=== PATIENT | female | born 1950 | race Caucasian/White ===

== ENCOUNTER → 2017-02-16 | Outpatient (CLI) | payer MEDICARE, BC ==
--- NOTE | 2017-02-17 10:58 | RADRPT ---
PROCEDURE: RIGHT knee x-ray, 4 views CLINICAL INDICATION: PAIN TECHNIQUE: AP, weightbearing AP, lateral, and sunrise views of the knee were obtained. COMPARISON: Plain radiographs of the knees from 10/03/2015 FINDINGS: No acute fracture or dislocation is seen. There is decreased osseous mineralization. There is stable moderate narrowing of the medial compartment which narrows further with flexion. Sm all osteophytes are noted projecting off the superior pole of the patella. There is no joint effusion. There is no significant soft tissue swelling. IMPRESSION: Stable moderate narrowing of the medial compartment which narrows further with flexion. Mild degenerative changes of the patellofemoral compartment. Decreased osseous mineralization. RPTAT: EE Physician Patricio Date Time Electronically viewed and signed by Physician Patricio on 02/17/2017 08:24 /
--- NOTE | 2017-02-17 11:33 | RADRPT ---
PROCEDURE: Limited x-ray of both lower extremities. CLINICAL INDICATION: Bilateral leg pain. TECHNIQUE: Single frontal view of both lower extremities was obtained from the hips to the calves. COMPARISON: None. FINDINGS: There is moderate narrowing of the medial compartment of the right knee. There is moderate narrowing of the medial compartment of the left knee. There is decreased osseous mineralization. There is moderate narrowing of right greater than left hip joints. Soft tissue structures are unremarkable. IMPRESSION: Moderate narrowing of bilateral hip joints. Moderate narrowing of the medial compartments of bilateral knees. Decreased osseous mineralization. RPTAT: QQ Physician Patricio Date Time Electronically viewed and signed by Physician Patricio on 02/17/2017 11:32 RA/
== END | disposition home or self-care (01) ==
LOC: HKI 09:52
PROVIDERS: ATTEND Orthopaedic Surgery
DX: M25.561 Pain in right knee (principal); M17.11 Unilateral primary osteoarthritis, right knee
CPT/HCPCS: 73564; 77073; G0463

== ENCOUNTER 2017-02-22 08:13 | Inpatient (IN) | payer MEDICARE, BC ==
--- NOTE | 2017-02-16 10:06 | PREOPHP ---
History of Present Illness: A 65-year-old woman with severe degenerative joint disease now scheduled for a right total knee replacement by Dr. Carloz Gayle at [facility] on February 22, 2017. The patient denies any other acute or new medical problems. Past Medical History: 1. Hypercholesterolemia. 2. Glucose intolerance. 3. GERD. 4. Degenerative joint disease. 5. A history of EtOH abuse. Current Medications: Atorvastatin 20 mg at bedtime, omeprazole 20 mg in the morning, CoQ-10, vitamin D 5000 units daily, vitamin B12, 3000 mcg daily, lefluonomide 10 mg daily. Drug Allergies: None known. Review of Systems: General: No recent fever or chills. HEENT: No headache, dizziness, or epistaxis. Respiratory: No cough or shortness of breath. Cardiovascular: No chest pain, orthopnea or palpitations. Gastrointestinal: No abdominal pain, nausea, vomiting, melena or hematochezia. Genitourinary: No dysuria or hematuria. Physical Examination: General: A well-developed woman, in no acute distress. Vital Signs: Temp 98, respiratory rate 12, heart rate 72, blood pressure 110/70. HEENT: Head atraumatic. Eyes: Anicteric sclerae. Pupils equally round and reactive to light. Extraocular movements intact. Throat clear. Neck: Supple without adenopathy or thyromegaly. Lungs: Clear to auscultation. Cardiovascular: Regular rhythm with a soft systolic murmur. There is no gallop. There is no jugular venous distension. Abdomen: Soft, nondistended, with normal bowel sounds. There is no tenderness or masses. Extremities: Without cyanosis or edema. Ancillary Data: EKG shows normal sinus rhythm and the EKG is unchanged from previous EKGs. Chest x-ray shows no acute pulmonary disease. PT and PTT are both normal. WBC 5100, hemoglobin 14.2, platelet count 189,000. Electrolytes within normal limits. BUN 17, creatinine 0.9, blood sugar 116. Urinalysis is clear. Assessment: 1. Degenerative joint disease, now scheduled for right knee replacement. 2. Gastroesophageal reflux disease. 3. Glucose intolerance. 4. Hypercholesterolemia. 5. History of alcohol abuse. Discussion: Ms. Groves medical problems are currently well controlled and there are no contraindications for surgery as planned. Miguel Angel Adrian MD, dictating for Carloz Gayle MD.
[~2017-02-22] VITALS: Ht 157.5 cm; Wt 58.0 kg
[2017-02-22] VITALS (20 sets, daily range): BP systolic 103–134; BP diastolic 72–88; PULSE 68–80; RESP 11–18; Ht 157.5 cm; Wt 58.0 kg
[2017-02-22] MEDS: LACTATED RINGER'S 1,000 ML IV SCH ×4 (06:00→21:59)
[~2017-02-22 08:13] MED LIST: BUPIVACAINE LIPOSOME/PF 266 MG/20 ML VIAL INFIL ONE; CEFAZOLIN 2GM/50 ML (PMX) 50 ML X1 BEFORE INCISION IVPB ONE; CELECOXIB 400 MG PO X1 DOSE PO ONE; ETOMIDATE 20 MG INJ ONE; ONDANSETRON 4 MG IV X 1 DOSE IV ONE; PAIN COCKTAIL-CEFUROXIME IRR ONE; PREGABALIN 300 MG PO X1 PO ONE; PROPOFOL 200 MG INJ ONE; TRANEXAMIC ACID 600 MG in SOD CHLORIDE 0.9% 100 ML IVPB ONE; TRANEXAMIC ACID 600 MG in SOD CHLORIDE 0.9% 94 ML IV ONE; oxyCODONE (CR) 10 MG TAB [oxyCONTIN] X1 DOSE PO ONE; traMADOL 50 MG TAB X 1 DOSE PO ONE
[2017-02-22] MEDS ORDERED: SODIUM CL BACTERIOSTATIC 30 ML INJ ONE (08:46)
[2017-02-22] MEDS ORDERED: POLYMYXIN B 500000 UNIT INJ ONE (08:46)
[2017-02-22] MEDS ORDERED: VANCOMYCIN 1 GM INJ ONE (08:46)
[2017-02-22] MEDS ORDERED: BACITRACIN 50000 UNITS INJ ONE (09:05)
[2017-02-22] MEDS ORDERED: ATOR20TA38 PO (10:20)
[2017-02-22] MEDS ORDERED: OMEP20CA16 PO (10:21)
[2017-02-22] MEDS ORDERED: LEFL10TA15 PO (10:21)
--- NOTE | 2017-02-22 12:02 | HPN ---
Date/Time of Note Date/Time of Note DATE: 02/22/17 TIME: 12:01 Interval H&P Admission Note Pt. seen H&P reviewed: No system changes No changes from H&P on 02/17/17 by SUDHIR Vergara MD Feb 22, 2017 12:02
[2017-02-22] MEDS ORDERED: METOCLOPRAMIDE 10 MG INJ ONE (12:19)
[2017-02-22] MEDS ORDERED: MIDAZOLAM 1 MG/ML 2 ML INJ ONE (12:19)
[2017-02-22] MEDS ORDERED: DEXAMETHASONE 4 MG/ML 1 ML INJ ONE (12:20)
[2017-02-22] MEDS ORDERED: FENTAnyl 50 MCG/ML VIAL ONE (12:21)
[2017-02-22] MEDS ORDERED: EPHEDrine SULFATE 50 MG/5 ML SYG ONE (12:51)
[2017-02-22] MEDS ORDERED: EPHEDrine SULFATE 50 MG/5 ML SYG IV PRN (13:30)
[2017-02-22] MEDS ORDERED: DIPHENHYDRAMINE 50 MG INJ IV PRN (13:30)
[2017-02-22] MEDS ORDERED: HYDROmorphONE (0.2 MG/ML) 10ML SYG IV PRN ×3 (13:30)
[2017-02-22] MEDS ORDERED: METOCLOPRAMIDE 10 MG INJ IV PRN (13:30)
[2017-02-22] MEDS ORDERED: ONDANSETRON 4 MG INJ IV PRN ×2 (13:30→14:30)
[2017-02-22] MEDS ORDERED: MEPERIDINE 25 MG INJ IV PRN (13:30)
[2017-02-22] MEDS ORDERED: HYDROmorphONE 1 MG/ML SYG IV PRN (14:30)
[2017-02-22] MEDS ORDERED: MAGNESIUM HYDROXIDE 30ML CUP PO PRN (14:30)
[2017-02-22] MEDS ORDERED: NACL 0.9% 3 ML SYG IV SCH (14:30)
[2017-02-22] MEDS ORDERED: ASPIRIN (EC) 325 MG TAB PO ONE (14:30)
[2017-02-22] MEDS ORDERED: HYDROCODONE/APAP (7.5/325) TAB PO PRN ×2 (14:30)
[2017-02-22] MEDS ORDERED: NA PHOSPHATE/BIPHOS 133 ML ENEMA PR PRN (14:30)
[2017-02-22] MEDS ORDERED: BISACODYL 10 MG SUPP PR PRN (14:30)
--- NOTE | 2017-02-22 14:32 | PN ---
Date/Time of Note Date/Time of Note DATE: 02/22/17 TIME: 14:30 Assessment/Plan Lines/Catheters IV Catheter Type (from Nrsg): Peripheral IV Assessment/Plan Assessment/Plan Stable in PACU, s/p right TKA -continue Ancef -pain meds as needed -ASA/SCDs -OOB with PT -check AM labs -monitor drain -d/c pelaez in AM XR of the right knee is pending at this time Subjective 24 Hr Interval Summary Stable in PACU. Denies pain. Moving all extremities. Exam/Review of Systems Vital Signs Vitals Vital Signs Date Time Temp Pulse Resp B/P Pulse Ox O2 Delivery O2 Flow Rate FiO2 02/22/17 16:00 Nasal Cannula 2.0 02/22/17 15:24 80 16 126/88 100 02/22/17 14:34 98.1 Exam Free Text/Dictation Hemovac: minimal Dressing dry Incision clean, dry, and intact without redness or drainage Thigh soft 5/5 Quadriceps, Tibialis Anterior, EHL, Gastroc, Soleus, Peroneals Normal sensation Palpable DT/PT, CR <2 sec No distal edema Results Result Diagram: 02/22/17 1440 02/22/17 1440 FADY NGUYỄN PA-C Feb 22, 2017 14:31
--- NOTE | 2017-02-22 14:32 | OPR ---
Date/Time of Note Date/Time of Note DATE: 02/22/17 TIME: 14:29 Operative Report Procedure Description DATE: 02/22/2017 PREOPERATIVE DIAGNOSIS: Right knee osteoarthritis POSTOPERATIVE DIAGNOSIS: Right knee osteoarthritis OPERATION PERFORMED: Right total knee arthroplasty. SURGEON: Sudhir Varner MD BILINGUAL SPEECH LANGUAGE PATHOLOGIST: Jace Salomon PA-C COMPONENTS USED: DePuy Attune size 5 cruciate retaining femur, size 3 tibial baseplate, 6 mm polyethylene insert, 35 patellar button ANESTHESIA: Spinal plus general endotracheal intubation, plus periarticular injection ANESTHESIOLOGIST: Saloni Cheek M.D. TOURNIQUET TIME: 47 minutes. ESTIMATED BLOOD LOSS: 50 INTRAVENOUS FLUIDS: 1,200 cc SPECIMENS: Bone and soft tissue. DRAINS: Hemovac x1. COMPLICATIONS: None. DISPOSITION: The patient tolerated the procedure well and was taken to the recovery room in stable condition. INDICATIONS: The patient is a 66-year-old woman who has had progressively worsening pain in the right knee with radiographic evidence of severe osteoarthritis. She has failed nonsurgical means of treatment to address her pain including activity modifications pain medications intra-articular injections and ambulatory assist devices. Despite these measures she has had worsening pain. I felt the patient would benefit from a total knee arthroplasty. The risks, benefits, and alternatives of the procedure were explained in detail to the patient. I explained the risks of the surgery to include but not be limited to, bleeding and possible need for blood transfusion; infection; pain; stiffness; neurovascular injury with possible numbness, weakness, and/or paralysis anywhere from the knee down to the toes; fracture; instability; dislocation; wear and/or loosening of the prosthesis and possible need for future revision; blood clots; pulmonary embolism; and anesthetic complications such as heart attack, stroke, GI bleed, pneumonia, and/or . Ample time was allowed for the patient to ask questions, all of which were addressed and answered. The patient understood the risks involved and wished to proceed. Informed consent was signed prior to the procedure. PROCEDURE: The patient's right knee was initialed with a marking pen in the preoperative area to identify the correct operative site. The patient was brought to the operating room and transferred from the [facility] to the operating table where a spinal anesthetic was administered. The patient was then anesthetized and intubated. A Disla catheter was placed. A timeout was performed to confirm that the right leg was the correct operative site. The patient was given 2 g of Ancef within one hour prior to the procedure. A tourniquet was placed on the operative proximal thigh. The operative knee and lower extremity were prepped and draped in the usual sterile fashion. The operative lower extremity was elevated and exsanguinated with an Esmarch tourniquet. The proximal thigh tourniquet was inflated to 300 mmHg. The knee was flexed. A midline incision was made and carried down through the subcutaneous tissue and fat with sharp dissection. Limited medial and lateral flaps were raised. A median parapatellar approach was performed. Synovial fluid was normal in color and consistency. The patella was everted and the knee flexed. There were severe tricompartmental osteoarthritic changes noted. A medial release was performed at the joint line to the midcoronal plane. The ACL and remnants of the menisci were excised. The PCL was intact. The stepped drill was used to open up the femoral canal which was irrigated and sucked dry. The intramedullary guide jose alberto was passed up the femur, and the distal cutting block was pinned into place for a 5 degree valgus cut, taking 10 mm of bone off distally. The oscillating saw was used to make the cut. The tibia was subluxed anteriorly. The tibial cutoff jig was placed over the center of the talus distally and over the junction of the medial and middle third of the tibial tubercle proximally. The guide was pinned into place and the oscillating saw was used to make the cut. The tibia was sized. The extension gap was checked and accommodated a 6 mm spacer block with the knee in full extension. There was no varus or valgus instability. At this point, the femur was sized with the posterior referencing guide. Two holes were drilled in 3 degrees of external rotation. The two holes were in line with the transepicondylar axis, perpendicular to Brentwood's line, and in line with the tibial cutoff jig brought up with the knee flexed 90 degrees and tensed with 2 lamina spreaders, suggesting the femoral rotation was correct. The four-in-one cutting block was pinned into place. The anterior and posterior cuts and chamfer cuts were made with the oscillating saw. The flexion gap was checked and accommodated the 6 mm spacer block at 90 degrees. There was no varus or valgus instability, suggesting the flexion and extension gaps were now equal. The central sulcus was cut out on the femur. The tibia was drilled and punched in proper rotation. Trial components were placed into position with a trial insert. The patella was cut down to 12 mm and sized. Three holes were drilled and the trial button placed in position. With all the trials now in place, the knee was taken through range of motion and came to full extension as evidenced by the fact that with the foot on my abdomen and axial loading, there was no tendency for the knee to flex. The knee was able to be flexed to 125 degrees with good patellar tracking with no lateral tilt or subluxation. At this point, I was satisfied with the overall range of motion, stability, and patellar tracking. The trials were removed. The real components were opened. Two bags of cement were mixed, one with and one without premixed antibiotic. The knee was irrigated with antibiotic saline and sucked dry. Once the cement was in a doughy stage, the real components were cemented into place. The knee was held in full extension, and the patellar component was held with a patellar clamp. All excess cement was removed with curettes. As the cement was hardening, the synovial/capsular layer was infiltrated with a mixture of 150 mg of 0.5% Bupivacaine, 8 mg of Duramorph, 300 mcg of epinephrine, 30 mg of Toradol, 100 mcg of clonidine, 750 mg of cefuroxime and 86 mL of normal saline, followed by an injection of 266 mg of liposomal Bupivacaine. A Hemovac drain was placed in the deep portion of the wound and brought out the anterolateral thigh. Once the cement was completely hardened, the trial liner was removed, and the real insert was opened. The tourniquet was let down, and there was good hemostasis. The knee was then irrigated with a mixture of betadine/saline and then antibiotic saline with pulsatile lavage. The real insert was impacted into the tibia and reduced onto to the femur. The arthrotomy was closed with a few interrupted #1 Ethibond in a figure-of- eight fashion, and then closed in a watertight fashion with a running #2 Stratafix suture. Knee flexion was checked against gravity and came to 125 degrees. The subcutaneous layer was irrigated and closed with 2-0 Statafix, and then 3-0 Vicryl and then seven on the skin. The wound was covered with an occlusive dressing, and secured with cast padding and a bias dressing. The drain was secured with 3-0 nylon. The sponge and needle counts were correct at the end of the case. The patient was then awakened, extubated, and taken to the recovery room in stable condition. SUDHIR VARNER MD Feb 22, 2017 14:32
[2017-02-22] MEDS: CEFAZOLIN 2 GM/50 ML (PMX) 50 ML IVPB SCH ×2 (14:39→21:58)
[2017-02-22 14:54] LABS: HEMATOCRIT 38.2 % (37.0-47.0); HEMOGLOBIN 12.9 g/dl (12.0-16.0)
[2017-02-22] MEDS ORDERED: EXPAREL NOTE (BUPIVICAINE LIPOSOMAL) XX SCH (15:00)
[2017-02-22] MEDS: traMADol 50 MG TAB PO SCH ×2 (15:23→17:29)
[2017-02-22 15:26] LABS: POTASSIUM 3.3 mmol/L (3.5-5.1)
[2017-02-22 15:27] LABS: CALCIUM 9.2 mg/dl (8.4-10.2); CREATININE 0.71 mg/dl (0.44-1.00)
[2017-02-22] MEDS ORDERED: POTASSIUM CHLORIDE (SR) 10 MEQ TAB PO SCH (15:32)
--- NOTE | 2017-02-22 16:05 | RADRPT ---
PROCEDURE: XR Knee. CLINICAL INDICATION: Right knee pain. Postoperative evaluation TECHNIQUE: AP and lateral views of the right knee were obtained. The images reviewed on a PACS [employer]. COMPARISON: None. FINDINGS: A right knee arthroplasty is seen and is without evidence of hardware loosening of lucency. Skin st aples are seen with a drain in place. Soft tissue air is seen in the operative bed. IMPRESSION: Status post right knee arthroplasty with acute postoperative changes. RPTAT: HPNM Physician Haley Date Time Electronically viewed and signed by Physician Haley on 02/22/2017 16:05 /
[2017-02-22] MEDS: PANTOPRAZOLE (EC) 40 MG TAB PO SCH (17:29)
[2017-02-22] MEDS ORDERED: TRANEXAMIC ACID 580 MG in SOD CHLORIDE 0.9% 100 ML IVPB ONE ×2 (17:30→20:30)
[2017-02-22] MEDS ORDERED: GLUCAGON 1 MG INJ IM PRN (18:30)
[2017-02-22] MEDS ORDERED: GLUCOSE GEL 15 GRAM TUBE PO PRN ×2 (18:30)
[2017-02-22] MEDS ORDERED: GLUCOSE GEL 15 GRAM TUBE BUCCAL PRN (18:30)
[2017-02-22] MEDS ORDERED: DEXTROSE 50% 50 ML SYRINGE IV PRN ×2 (18:30)
[2017-02-22] MEDS: ATORVASTATIN 20 MG TAB PO SCH (20:39)
[2017-02-22] MEDS: DOCUSATE SODIUM 100 MG CAP PO SCH (20:39)
[2017-02-22] MEDS: PREGABALIN 50 MG CAP PO SCH (20:39)
[2017-02-22] MEDS: INSULIN ASPART [NOVOLOG] 3 ML PEN SC SCH (20:40)
[2017-02-22] MEDS: DIPHENHYDRAMINE 25 MG CAP PO PRN (21:59)
[2017-02-22] MEDS ORDERED: POTASSIUM CHLORIDE (SR) 10 MEQ TAB PO ONE (22:00)
[2017-02-23] MEDS: traMADol 50 MG TAB PO SCH ×4 (00:17→17:36)
--- NOTE | 2017-02-23 03:44 | CONS ---
DATE OF ADMISSION: 02/22/2017 DATE OF CONSULTATION: 02/22/2017 Dr. Gayle: Thank you very much for allowing me to evaluate the above patient, a 66-year-old female, who just underwent right total knee replacement. HISTORICAL EVENTS: As you well know, this patient has had progressive disabling pain involving her right knee and elected to proceed with surgery. Postoperatively, on the orthopedic floor she is comfortable without cough, wheezing, shortness of breath, nausea, vomiting, abdominal or chest pain. PAST MEDICAL HISTORY: Includes: 1. Hyperlipidemia. 2. History of glucose intolerance. 3. GERD. 4. Degenerative joint disease. 5. History of alcohol abuse. MEDICATION: 1. Atorvastatin 20 per day. 2. Omeprazole 20 per day. 3. CoQ-10, dose uncertain. 4. Vitamin D 5000 units per day. 5. B12, 3000 mcg per day. 6. Leflunomide 10 mg daily. ALLERGIES: NONE. FAMILY HISTORY: To be reviewed later. PHYSICAL EXAMINATION: GENERAL APPEARANCE: Den[place] female, no acute distress. VITAL SIGNS: BP 120/80, pulse 70, respirations 20. She was afebrile. HEENT: Eyes: Extraocular muscles were full. Nose, mouth and throat, normal. NECK: Supple. There was no jugular venous distention, thyroid enlargement, adenopathy. Carotids 2+, no bruits. LUNGS: Clear. HEART: Rhythm regular. ABDOMEN: Nontender. Liver and spleen were not palpable. No mass or tenderness were noted. EXTREMITIES: No edema involving the left lower extremity. The right was bandaged. IMPRESSION: 1. Stable postop right knee replacement. 2. History of gastroesophageal reflux disease. We will be certain proton pump inhibitor has been prescribed. 3. We will evaluate daily for signs and symptoms of thromboembolic disease. 4. History of glucose intolerance. We will monitor sugars during her hospital stay. Dictated By: Walter Royal MD /sheri/gunner /Document#: [id number]
[2017-02-23 05:24] LABS: HEMATOCRIT 34.8 % (37.0-47.0); HEMOGLOBIN 11.5 g/dl (12.0-16.0)
[2017-02-23] MEDS: PANTOPRAZOLE (EC) 40 MG TAB PO SCH ×2 (05:45→17:36)
[2017-02-23] MEDS: CEFAZOLIN 2 GM/50 ML (PMX) 50 ML IVPB SCH (05:46)
[2017-02-23] MEDS: LACTATED RINGER'S 1,000 ML IV SCH ×3 (05:48→20:51)
[2017-02-23 06:10] LABS: CREATININE 0.76 mg/dl (0.44-1.00); POTASSIUM 4.9 mmol/L (3.5-5.1)
[2017-02-23 06:40] LABS: MAGNESIUM 1.7 mg/dl (1.7-2.5); PHOSPHORUS 4.1 mg/dl (2.5-4.9)
[2017-02-23 07:00] VITALS: BP 122/78; RESP 18
[2017-02-23] MEDS ORDERED: ASPI325T32 PO (07:33)
[2017-02-23] MEDS ORDERED: TRAM50TA2 PO (07:33)
[2017-02-23] MEDS ORDERED: PREG50CA PO (07:33)
[2017-02-23] MEDS ORDERED: HYDR-3605 PO (07:33)
--- NOTE | 2017-02-23 07:33 | PDOCDIS ---
Discharge Instructions DIAGNOSIS Discharge Diagnosis s/p right total knee arthroplasty CONDITION Patient Condition: Good HOME CARE INSTRUCTIONS: Diet Instructions: RegularSpecial Diet: CLEAR LIQUID ACTIVITY: Activity Restrictions: Slowly Increase Activity Rest between Activity Avoid heavy lifting Do not operate Machinery Do not operate Power Tool Avoid Heavy Housework Keep Limb Elevated Weight Bearing Bathing Restrictions: Shower FOLLOW UP/APPOINTMENTS Follow-up Plan follow up in the office on 03/04/17 OTHER ORDERS: Other Orders: S/P TKA Physical Therapy: Three times per week at home x 2 weeks Daily in Rehab/SNF WB STATUS: WBAT 1. Strengthening exercises for both upper and un-operated lower extremities. 2. Gait training with front wheeled walker 3. Active range of motion exercises to operative knee. 4. When not working on knee range of motion exercises, distal towel roll under operative ankle/distal calf to promote full extension. 5. DO NOT PUT ANYTHING BEHIND OPERATIVE KNEE!!! 6. Quadriceps and hamstring strengthening. 7. May switch to cane in contra lateral hand 6 weeks after surgery. 8. Physical Therapy can open case if nursing is not available. 9. Use Ice Machine as instructed from date of surgery while at rest 3X/day. 10. Patient requires mobile SCDs to reduce risk of developing DVT following TKA. Patient will use the mobile SCDs for 30 days postoperatively. Bathing assistance by home health aide twice weekly if Medicare patient. Occupational Therapy: Evaluation for assistive devices and ADL training. Wound Care: Keep incision dry & covered with Tegaderm until first visit with Dr. Gayle Anticoagulation Orders: Enteric Coated Aspirin 325 mg po bid x 6 weeks from date of surgery Follow-up:Call for an appointment with Dr. Gayle in 1 week after discharged from hospital at DME Orders: FWW, 3-in-1 Commode, Polar ice machine, Mobile SCDs FADY NGUYỄN PA-C Feb 23, 2017 07:33
[2017-02-23] MEDS: INSULIN ASPART [NOVOLOG] 3 ML PEN SC SCH ×4 (07:50→20:51)
[2017-02-23] MEDS: ASPIRIN (EC) 325 MG TAB PO SCH ×2 (08:35→20:27)
[2017-02-23] MEDS: DOCUSATE SODIUM 100 MG CAP PO SCH ×2 (08:35→20:26)
[2017-02-23] MEDS: LEFLUNOMIDE 10 MG TAB PO SCH (08:35)
[2017-02-23] MEDS: PREGABALIN 50 MG CAP PO SCH ×2 (08:35→20:27)
--- NOTE | 2017-02-23 08:36 | CONS ---
Date/Time of Note Date/Time of Note DATE: 02/23/17 TIME: 08:33 Assessment/Plan Assessment/Plan Additional Assessment/Plan 1. Patient is status post right knee replacement and doing well. 2. History of GERD which is now quiescent. 3. History of elevated sugars preop with acceptable postop blood sugars receiving AC insulin coverage. 4. Labs were reviewed. Consultation Date/Type/Reason Admit Date/Time Feb 22, 2017 at 09:31 Initial Consult Date 24 HR Interval Summary Free Text/Dictation The patient admits to a slight sore throat. She denies cough wheezing shortness of breath nausea vomiting or abdominal pain. Disla catheter was just removed. She has mild right knee pain. Exam/Review of Systems Vital Signs Vitals Vital Signs Date Time Temp Pulse Resp B/P Pulse Ox O2 Delivery O2 Flow Rate FiO2 02/23/17 07:00 97.5 78 18 122/78 98 02/22/17 18:45 Nasal Cannula 2.0 Intake and Output 02/22/17 02/22/17 02/23/17 15:00 23:00 07:00 Intake Total 2206 ml 1481.6 ml 1975 ml Output Total 350 ml 1080 ml 1530 ml Balance 1856 ml 401.6 ml 445 ml Exam Exam: Neck: There is no jugular venous distention thyroid enlargement or adenopathy. Lungs: Clear to auscultation and percussion. Heart: Rhythm was regular there was no murmur third or fourth sound. Abdomen: Liver and spleen were not enlarged there was no tenderness. Extremities: Left lower extremity revealed no edema or calf tenderness right lower extremity was bandaged there was no calf tenderness. Neurologic: No lateralizing motor weakness was present. Results Result Diagram: 02/23/17 0421 02/23/17 0421 Results 24 hrs Laboratory Tests Test 02/22/17 14:40 02/22/17 20:38 02/23/17 04:21 Hemoglobin 12.9 11.5 L Hematocrit 38.2 34.8 L Sodium Level 140 139 Potassium Level 3.3 L 4.9 Chloride Level 108 106 Carbon Dioxide Level 23 26 Anion Gap 12 12 Blood Urea Nitrogen 17 14 Creatinine 0.71 0.76 Glucose Level 136 112 Calcium Level 9.2 9.0 Bedside Glucose 170 Phosphorus Level 4.1 Magnesium Level 1.7 Medications Medications Current Medications Miscellaneous Information 1 ea NOTE XX ; Start 02/22/17 at 15:00; Stop 02/26/17 at 14:59 Atorvastatin Calcium 20 mg 20 mg QHS PO Last administered on 02/22/17 20:39; Admin Dose 20 MG; Start 02/22/17 at 21:00 Lactated Ringer's (Lr) 1,000 ml @ 125 mls/hr Q8H IV Last administered on 05:48; Admin Dose 125 MLS/HR; Start 02/22/17 at 14:23 Tramadol HCl (Ultram) 50 mg Q6 PO Last administered on 02/23/17 05:45; Admin Dose 50 MG; Start 02/22/17 at 12:00; Stop 02/25/17 at 11:59 Hydromorphone HCl (Dilaudid) 1 mg Q3H PRN IV PAIN LEVEL 8-10; Start 02/22/17 at 14:30 Ondansetron HCl (Zofran Inj) 4 mg Q6H PRN IV NAUSEA AND/OR VOMITING; Start at 14:30 Bisacodyl (Dulcolax Supp) 10 mg Q12H PRN SC CONSTIPATION; Start 02/22/17 at 14: 30 Magnesium Hydroxide (Milk Of Mag) 30 ml BID PRN PO CONSTIPATION; Start at 14:30 Sodium Biphosphate/ Sodium Phosphate (Fleet Enema) 133 ml DAILY PRN SC CONSTIPATION; Start 02/22/17 at 14:30 Docusate Sodium (Colace) 100 mg BID PO Last administered on 02/22/17 20:39; Admin Dose 100 MG; Start 02/22/17 at 21:00 Diphenhydramine HCl (Benadryl) 25 mg Q6H PRN PO PRURITUS Last administered on 21:59; Admin Dose 25 MG; Start 02/22/17 at 14:30 Acetaminophen/ Hydrocodone Bitart ([place] (7.5-325)) 1 tab Q4H PRN PO PAIN LEVEL 1-3; Start 02/22/17 at 14:30 Acetaminophen/ Hydrocodone Bitart ([place] (7.5-325)) 2 tab Q4H PRN PO PAIN LEVEL 4-7; Start 02/22/17 at 14:30 Aspirin (Ecotrin) 325 mg BID PO ; Start 02/23/17 at 09:00 Pantoprazole (Protonix Tab) 40 mg BID@06,18 PO Last administered on 02/23/17 05:45; Admin Dose 40 MG; Start 02/22/17 at 18:00 Pregabalin (Lyrica) 50 mg BID PO Last administered on 02/22/17 20:39; Admin Dose 50 MG; Start 02/22/17 at 21:00 Leflunomide (Arava) 10 mg DAILY PO ; Start 02/23/17 at 09:00 Miscellaneous Information 1 ea NOTE XX ; Start 02/22/17 at 18:30 Glucose (Glutose) 15 gm Q15M PRN PO DECREASED GLUCOSE; Start 02/22/17 at 18:30 Glucose (Glutose) 22.5 gm Q15M PRN PO DECREASED GLUCOSE; Start 02/22/17 at 18: 30 Dextrose (D50w Syringe) 25 ml Q15M PRN IV DECREASED GLUCOSE; Start 02/22/17 at 18:30 Dextrose (D50w Syringe) 50 ml Q15M PRN IV DECREASED GLUCOSE; Start 02/22/17 at 18:30 Glucagon (Glucagen) 1 mg Q15M PRN IM DECREASED GLUCOSE; Start 02/22/17 at 18:30 Glucose (Glutose) 15 gm Q15M PRN BUCCAL DECREASED GLUCOSE; Start 02/22/17 at 18 :30 BECKY SALDANA MD Feb 23, 2017 08:36
--- NOTE | 2017-02-23 08:53 | PN ---
Date/Time of Note Date/Time of Note DATE: 02/23/17 TIME: 08:51 Assessment/Plan Lines/Catheters IV Catheter Type (from Nrsg): Peripheral IV Disla in Place (from Nrsg): Yes Assessment/Plan Assessment/Plan Stable POD #1, s/p right TKA -d/c Ancef -pain meds as needed -ASA/SCDs -OOB with PT -drain removed -check AM labs -d/c planning for home Subjective 24 Hr Interval Summary No acute overnight events. Denies pain. Did not start PT yet. VSS, afebrile. Will plan to go home upon discharge. Exam/Review of Systems Vital Signs Vitals Vital Signs Date Time Temp Pulse Resp B/P Pulse Ox O2 Delivery O2 Flow Rate FiO2 02/23/17 07:00 97.5 78 18 122/78 98 02/22/17 18:45 Nasal Cannula 2.0 Intake and Output 02/22/17 02/22/17 02/23/17 14:59 22:59 06:59 Intake Total 2206 ml 1481.6 ml 1975 ml Output Total 350 ml 1080 ml 1530 ml Balance 1856 ml 401.6 ml 445 ml Exam Free Text/Dictation Hemovac: 110cc Dressing dry Incision clean, dry, and intact without redness or drainage Thigh soft 5/5 Quadriceps, Tibialis Anterior, EHL, Gastroc, Soleus, Peroneals Normal sensation Palpable DT/PT, CR <2 sec No distal edema Results Result Diagram: 02/23/1742002/23/17420 FADY NGUYỄN PA-C Feb 23, 2017 08:53
[2017-02-23] MEDS ORDERED: LEFLUNOMIDE 20 MG TAB PO SCH (09:00)
[2017-02-23 14:00] VITALS: BP 100/61; RESP 20
[2017-02-23 20:00] VITALS: BP 118/68; RESP 19
[2017-02-23] MEDS: ATORVASTATIN 20 MG TAB PO SCH (20:27)
[2017-02-23] MEDS: DIPHENHYDRAMINE 25 MG CAP PO PRN (20:30)
[2017-02-24] MEDS: traMADol 50 MG TAB PO SCH ×4 (01:40→11:21)
[2017-02-24 02:00] VITALS: BP 136/85; RESP 18
[2017-02-24 05:30] LABS: HEMATOCRIT 33.7 % (37.0-47.0); HEMOGLOBIN 10.9 g/dl (12.0-16.0)
[2017-02-24 05:57] LABS: CALCIUM 9.3 mg/dl (8.4-10.2); CREATININE 0.87 mg/dl (0.44-1.00); POTASSIUM 4.7 mmol/L (3.5-5.1)
[2017-02-24] MEDS: LACTATED RINGER'S 1,000 ML IV SCH (06:23)
[2017-02-24] MEDS: PANTOPRAZOLE (EC) 40 MG TAB PO SCH (06:43)
--- NOTE | 2017-02-24 07:47 | CONS ---
Date/Time of Note Date/Time of Note DATE: 02/24/17 TIME: 07:46 Assessment/Plan Assessment/Plan Additional Assessment/Plan 1. Patient is status post right knee replacement and doing well. 2. History of GERD which is now quiescent. 3. History of elevated sugars with sugars now quite nl, will dc accucheck coverage 4. Labs were reviewed. Consultation Date/Type/Reason Admit Date/Time Feb 22, 2017 at 09:31 Detailed Summary Respiratory: No cough, No shortness of breath Cardiovascular: No chest pain Gastrointestinal: no complaints Genitourinary: no complaints Musculoskeletal: bone/joint pain (mold right knee pain) Exam/Review of Systems Vital Signs Vitals Vital Signs Date Time Temp Pulse Resp B/P Pulse Ox O2 Delivery O2 Flow Rate FiO2 02/24/17 02:00 97.5 69 18 136/85 96 02/22/17 18:45 Nasal Cannula 2.0 Intake and Output 02/23/17 02/23/17 02/24/17 15:00 23:00 07:00 Intake Total 625 ml 1200 ml 950 ml Output Total 200 ml 850 ml Balance 625 ml 1000 ml 100 ml Exam Neck: No jvd Respiratory: clear to auscultation Cardiovascular: regular rate and rhythm Gastrointestinal: soft Extremities: No edema (and no calf tend bilat) Results Result Diagram: 02/24/17 0425 02/24/17 0425 Results 24 hrs Laboratory Tests Test 02/23/17 08:34 02/23/17 17:35 02/23/17 20:24 02/24/17 04:25 Bedside Glucose 110 93 109 Hemoglobin 10.9 L Hematocrit 33.7 L Sodium Level 141 Potassium Level 4.7 Chloride Level 106 Carbon Dioxide Level 30 Anion Gap 10 Blood Urea Nitrogen 19 Creatinine 0.87 Glucose Level 85 Calcium Level 9.3 Medications Medications Current Medications Miscellaneous Information 1 ea NOTE XX ; Start 02/22/17 at 15:00; Stop 02/26/17 at 14:59 Atorvastatin Calcium 20 mg 20 mg QHS PO Last administered on 02/23/17 20:27; Admin Dose 20 MG; Start 02/22/17 at 21:00 Lactated Ringer's (Lr) 1,000 ml @ 125 mls/hr Q8H IV Last administered on 05:48; Admin Dose 125 MLS/HR; Start 02/22/17 at 14:23 Tramadol HCl (Ultram) 50 mg Q6 PO Last administered on 02/24/17 06:43; Admin Dose 50 MG; Start 02/22/17 at 12:00; Stop 02/25/17 at 11:59 Hydromorphone HCl (Dilaudid) 1 mg Q3H PRN IV PAIN LEVEL 8-10; Start 02/22/17 at 14:30 Ondansetron HCl (Zofran Inj) 4 mg Q6H PRN IV NAUSEA AND/OR VOMITING; Start at 14:30 Bisacodyl (Dulcolax Supp) 10 mg Q12H PRN [place] CONSTIPATION; Start 02/22/17 at 14: 30 Magnesium Hydroxide (Milk Of Mag) 30 ml BID PRN PO CONSTIPATION Last administered on 02/23/17 20:30; Admin Dose 30 ML; Start 02/22/17 at 14:30 Sodium Biphosphate/ Sodium Phosphate (Fleet Enema) 133 ml DAILY PRN [place] CONSTIPATION; Start 02/22/17 at 14:30 Docusate Sodium (Colace) 100 mg BID PO Last administered on 02/23/17 20:26; Admin Dose 100 MG; Start 02/22/17 at 21:00 Diphenhydramine HCl (Benadryl) 25 mg Q6H PRN PO PRURITUS Last administered on 20:30; Admin Dose 25 MG; Start 02/22/17 at 14:30 Acetaminophen/ Hydrocodone Bitart ([place] (7.5-325)) 1 tab Q4H PRN PO PAIN LEVEL 1-3; Start 02/22/17 at 14:30 Acetaminophen/ Hydrocodone Bitart ([place] (7.5-325)) 2 tab Q4H PRN PO PAIN LEVEL 4-7; Start 02/22/17 at 14:30 Aspirin (Ecotrin) 325 mg BID PO Last administered on 02/23/17 20:27; Admin Dose 325 MG; Start 02/23/17 at 09:00 Pantoprazole (Protonix Tab) 40 mg BID@18 PO Last administered on 02/24/17 06:43; Admin Dose 40 MG; Start 02/22/17 at 18:00 Pregabalin (Lyrica) 50 mg BID PO Last administered on 02/23/17 20:27; Admin Dose 50 MG; Start 02/22/17 at 21:00 Leflunomide (Arava) 10 mg DAILY PO Last administered on 02/23/17 08:35; Admin Dose 10 MG; Start 02/23/17 at 09:00 Miscellaneous Information 1 ea NOTE XX ; Start 02/22/17 at 18:30 Glucose (Glutose) 15 gm Q15M PRN PO DECREASED GLUCOSE; Start 02/22/17 at 18:30 Glucose (Glutose) 22.5 gm Q15M PRN PO DECREASED GLUCOSE; Start 02/22/17 at 18: 30 Dextrose (D50w Syringe) 25 ml Q15M PRN IV DECREASED GLUCOSE; Start 02/22/17 at 18:30 Dextrose (D50w Syringe) 50 ml Q15M PRN IV DECREASED GLUCOSE; Start 02/22/17 at 18:30 Glucagon (Glucagen) 1 mg Q15M PRN IM DECREASED GLUCOSE; Start 02/22/17 at 18:30 Glucose (Glutose) 15 gm Q15M PRN BUCCAL DECREASED GLUCOSE; Start 02/22/17 at 18 :30 BECKY SALDANA MD Feb 24, 2017 07:47
[2017-02-24 08:12] VITALS: BP 111/76; RESP 18
[2017-02-24] MEDS: LEFLUNOMIDE 10 MG TAB PO SCH (08:39)
[2017-02-24] MEDS: DOCUSATE SODIUM 100 MG CAP PO SCH (08:39)
[2017-02-24] MEDS: PREGABALIN 50 MG CAP PO SCH (08:39)
[2017-02-24] MEDS: ASPIRIN (EC) 325 MG TAB PO SCH (08:39)
--- NOTE | 2017-02-24 10:57 | PN ---
Date/Time of Note Date/Time of Note DATE: 02/24/17 TIME: 10:56 Assessment/Plan Lines/Catheters IV Catheter Type (from Nrsg): Saline Lock Disla in Place (from Nrsg): Yes Assessment/Plan Assessment/Plan POD #2, s/p right TKA -pain meds prn -ASA/SCDs -OOB with PT -dressing changed -d/c home today -follow up at [facility] with Dr. Gayle in 1 week Subjective 24 Hr Interval Summary No acute overnight events. Progressing with PT. Would like to go home today. Exam/Review of Systems Vital Signs Vitals Vital Signs Date Time Temp Pulse Resp B/P Pulse Ox O2 Delivery O2 Flow Rate FiO2 02/24/17 08:12 97.9 76 18 111/76 97 02/22/17 18:45 Nasal Cannula 2.0 Intake and Output 02/23/17 02/23/17 02/24/17 15:00 23:00 07:00 Intake Total 625 ml 1200 ml 950 ml Output Total 200 ml 850 ml Balance 625 ml 1000 ml 100 ml Exam Free Text/Dictation Dressing dry Incision clean, dry, and intact without redness or drainage Thigh soft 5/5 Quadriceps, Tibialis Anterior, EHL, Gastroc, Soleus, Peroneals Normal sensation Palpable DT/PT, CR <2 sec No distal edema Results Result Diagram: 02/24/1742402/24/17424 FADY NGUYỄN PA-C Feb 24, 2017 10:57
--- NOTE | 2017-02-24 14:40 | PN ---
Date/Time of Note Date/Time of Note DATE: 02/23/17 TIME: 15:38 a 66 YEAR FEMALE S/P RIGHT KNEE ARTHROPLASTY POD #1 UNDER ga, sPINAL. SHE IS DOING FINE. NO PAIN, n/v, ITCHIN, BACK PAIN,. care per surgery team Assessment/Plan VTE Prophylaxis VTE Prophylaxis Intervention: ambulation Lines/Catheters IV Catheter Type (from Nrsg): Saline Lock Urinary Cath still in place: Yes Exam/Review of Systems Vital Signs Vitals Vital Signs Date Time Temp Pulse Resp B/P Pulse Ox O2 Delivery O2 Flow Rate FiO2 02/24/17 08:12 97.9 76 18 111/76 97 02/22/17 18:45 Nasal Cannula 2.0 Intake and Output 02/23/17 02/23/17 02/24/17 15:00 23:00 07:00 Intake Total 625 ml 1200 ml 950 ml Output Total 200 ml 850 ml Balance 625 ml 1000 ml 100 ml Results Result Diagram: 02/24/17 0425 02/24/17 0425 Results 24 hrs Laboratory Tests Test 02/23/17 17:35 02/23/17 20:24 02/24/17 04:25 Bedside Glucose 93 109 Hemoglobin 10.9 L Hematocrit 33.7 L Sodium Level 141 Potassium Level 4.7 Chloride Level 106 Carbon Dioxide Level 30 Anion Gap 10 Blood Urea Nitrogen 19 Creatinine 0.87 Glucose Level 85 Calcium Level 9.3 JAN HSU MD Feb 24, 2017 14:40
--- NOTE | 2017-03-09 09:02 | DS ---
Date/Time of Note Date/Time of Note DATE: 03/09/17 TIME: 08:59 Discharge Summary Admission/Discharge Info Admit Date/Time Feb 22, 2017 at 09:31 Discharge Date/Time Feb 24, 2017 at 13:18 Discharge Diagnosis s/p right total knee arthroplasty Patient Condition: Good Procedures Right total knee arthroplasty Hospital Course This is a 66-year-old female, who was seen in the clinic initially complaining of right knee pain. X-rays demonstrated advanced osteoarthritis of the right knee, and it was thought she would benefit from a right total knee arthroplasty. On 02/22/2017, the patient was admitted and taken to the operating room, where she underwent a right total knee arthroplasty. There were no intraoperative complications. The patient tolerated the procedure well. She was taken to recovery room in stable condition. Pain was well- controlled oral pain medication.She was started on aspirin and SCDs for DVT prophylaxis. She remained hemodynamically stable and neurovascularly intact throughout her hospital stay. She began physical therapy on postoperative day 1 , and continued to make a progress. Ultimately she was deemed stable for discharge home on postoperative day 2. Prior to discharge, the incision was inspected and noted to be clean, dry, and intact. Dressing changes were done prior to patient going home. Discharge instructions: The patient will be discharged home in stable condition. She is to resume a normal diet. She is weightbearing as tolerated on the right lower extremity. She will begin physical therapy with home health. She be discharged home with a medication noted, and is to resume all of her normal home medication. The patient is to call the office or go to emergency room for any concerns including increased redness, swelling, drainage , fever, or any concerns regarding the operation or site of incision. Home Meds Active Scripts Tramadol HCl (Tramadol HCl) 50 Mg Tablet, 50 MG PO Q6 for 30 Days, #60 TAB Prov:FADY NGUYỄN PA-C 02/23/17 Pregabalin* (Lyrica*) 50 Mg Capsule, 50 MG PO BID for 30 Days, #60 CAP Prov:FADY NGUYỄN PA-C 02/23/17 Hydrocodone/Acetaminophen (Hydrocodon-Acetaminoph 7.5-325) 1 Each Tablet, 1 TAB PO Q4H Y for PAIN LEVEL 1-3 for 30 Days, #60 TAB Prov:FADY NGUYỄN PA-C 02/23/17 Aspirin (Aspir-Adry) 325 Mg Tablet., 325 MG PO BID for 40 Days, #80 Prov:FADY NGUYỄN PA-C 02/23/17 Reported Medications Leflunomide* (Leflunomide*) 10 Mg Tablet, 10 MG PO DAILY, #30 TAB 02/22/17 Omeprazole* (Omeprazole*) 20 Mg Capsule., 20 MG PO DAILY, #30 CAP 02/22/17 Atorvastatin Calcium* (Atorvastatin Calcium*) 20 Mg Tablet, 20 MG PO QHS, #30 TAB 02/22/17 Follow-up Plan Follow-up with Dr. Gayle at [facility] in 1 week Primary Care Provider FADY Bernard PA-C Mar 09, 2017 09:02
== END 2017-02-24 13:18 | disposition home health service (06) | DRG 470 ==
LOC: REC 09:31 → MS1 16:00
PROVIDERS: ADMIT Orthopaedic Surgery; ATTEND Orthopaedic Surgery
PROC: 0SRC0J9 Replacement of Right Knee Joint with Synthetic Substitute, Cemented, Open Approach (ICD-10-PCS; principal; 2017-02-22 10:30)
DX: M17.11 Unilateral primary osteoarthritis, right knee (principal); K21.9 Gastro-esophageal reflux disease without esophagitis; E78.00 Pure hypercholesterolemia, unspecified; R73.02 Impaired glucose tolerance (oral)
CPT/HCPCS: 73560; 80048; 82962; 83735; 84100; 85014; 85018; 86850; 86900; 86901; 86920; 87081; 87086; 88304; 88311; 97110; 97116; 97163; 97166; 97530; C1776; C9290; J0171; J0690; J0697; J0735; J1100; J1815; J1885; J2250; J2274; J2405; J2765; J3010; J3370; J7120

== ENCOUNTER → 2017-03-04 | Outpatient (CLI) | payer MEDICARE, BC ==
[~2017-03-04] MED LIST changes: +ASPI325T32 PO; +ATOR20TA38 PO; -BUPIVACAINE LIPOSOME/PF 266 MG/20 ML VIAL INFIL ONE; -CEFAZOLIN 2GM/50 ML (PMX) 50 ML X1 BEFORE INCISION IVPB ONE; -CELECOXIB 400 MG PO X1 DOSE PO ONE; -ETOMIDATE 20 MG INJ ONE; +HYDR-3605 PO; +LEFL10TA15 PO; +OMEP20CA16 PO; -ONDANSETRON 4 MG IV X 1 DOSE IV ONE; -PAIN COCKTAIL-CEFUROXIME IRR ONE; +PREG50CA PO; -PREGABALIN 300 MG PO X1 PO ONE; -PROPOFOL 200 MG INJ ONE; +TRAM50TA2 PO; -TRANEXAMIC ACID 600 MG in SOD CHLORIDE 0.9% 100 ML IVPB ONE; -TRANEXAMIC ACID 600 MG in SOD CHLORIDE 0.9% 94 ML IV ONE; -oxyCODONE (CR) 10 MG TAB [oxyCONTIN] X1 DOSE PO ONE; -traMADOL 50 MG TAB X 1 DOSE PO ONE
--- NOTE | 2017-03-04 10:13 | PN ---
Date/Time of Note Date/Time of Note DATE: 03/04/17 TIME: 10:10 Outpatient Progress Note HPI The patient presents today for her first postoperative evaluation on her right knee. She is 10 days status post right total knee arthroplasty. She is doing well overall. She is having moderate pain but is controlling it with [place]. She denies any fevers or chills. She is doing physical therapy with home health. She presents today for her first postoperative evaluation. Physical Exam On exam today, she is alert and oriented 4, and in no acute distress. Exam of the incision demonstrates it to be clean, dry, and intact. Seven are in place. She is ambulating with a front wheel walker. Range of motion is 080. Varus and valgus forces are stable. She has no significant soft tissue swelling. Compartments are soft. Homans sign is negative. She is neurovascularly intact distally. Imaging: X-rays of the right knee were obtained today and reviewed by me. They demonstrate the prosthesis to be in good anatomic alignment with no fractures or dislocations identified Allergies Coded Allergies: No Known Allergies (Verified Allergy, Unknown, 02/22/17) Assessment/Plan Assessment: 10 days status post right total knee arthroplasty Plan: The seven removed today, and Steri-Strips were applied. She is to continue taking aspirin 325 mg twice daily for DVT prophylaxis. She is to continue doing physical therapy with home health. A refill of [place] 7.5/325 mg quantity of 60 was refilled today. We will see her back in 4 weeks for repeat evaluation. Patient is to follow with Dr. Gayle at [facility]. Medications Home Meds Active Scripts Tramadol HCl (Tramadol HCl) 50 Mg Tablet, 50 MG PO Q6 for 30 Days, #60 TAB Prov:FADY NGUYỄN PA-C 02/23/17 Pregabalin* (Lyrica*) 50 Mg Capsule, 50 MG PO BID for 30 Days, #60 CAP Prov:FADY NGUYỄN PA-C 02/23/17 Hydrocodone/Acetaminophen (Hydrocodon-Acetaminoph 7.5-325) 1 Each Tablet, 1 TAB PO Q4H Y for PAIN LEVEL 1-3 for 30 Days, #60 TAB Prov:FADY NGUYỄN PA-C 02/23/17 Aspirin (Aspir-Adry) 325 Mg Tablet., 325 MG PO BID for 40 Days, #80 Prov:FADY NGUYỄN PA-C 02/23/17 Reported Medications Leflunomide* (Leflunomide*) 10 Mg Tablet, 10 MG PO DAILY, #30 TAB 02/22/17 Omeprazole* (Omeprazole*) 20 Mg Capsule., 20 MG PO DAILY, #30 CAP 02/22/17 Atorvastatin Calcium* (Atorvastatin Calcium*) 20 Mg Tablet, 20 MG PO QHS, #30 TAB 02/22/17 FADY NGUYỄN PA-C Mar 04, 2017 10:13
--- NOTE | 2017-03-04 14:09 | RADRPT ---
PROCEDURE: Right knee radiographs. CLINICAL INDICATION: Right knee pain. Postop. TECHNIQUE: Two views. Frontal and lateral. COMPARISON: 02/16/2017. 02/22/2017. FINDINGS: There is no fracture or dislocation. Anterior surgical drain has been removed. Skin seven remain in position. There is a joint effusi on and diffuse soft tissue swelling. There is a total right knee arthroplasty which appears satisfactory. There is no lytic or blastic lesion. IMPRESSION: 1. Satisfactory postoperative appearance of the right knee. 2. Joint effusion and diffuse soft tissue swelling. RPTAT: QQ .Rene Galan MD, MD Date Time Electronically viewed and signed by .Rene Galan MD, on 03/04/2017 14:08 .R/
== END | disposition home or self-care (01) ==
LOC: HKI 09:45
PROVIDERS: ATTEND Orthopaedic Surgery
DX: M25.561 Pain in right knee (principal); Z47.1 Aftercare following joint replacement surgery; Z96.651 Presence of right artificial knee joint